=== PATIENT | female | born 1955 | race Caucasian/White ===

== ENCOUNTER 2023-09-11 07:55 | Emergency (ER) | payer MEDICARE, BC ==
[~2023-09-11] VITALS: Ht 177.8 cm; Wt 73.5 kg
[2023-09-11] MEDS ORDERED: NAPR-1009 PO (09:57)
[2023-09-11 10:22] VITALS: BP 130/78; TEMP 97.8; O2SAT 100
== END 2023-09-11 10:20 | disposition home or self-care (01) ==
LOC: ER 08:12
DX: S80.02XA Contusion of left knee, initial encounter (principal); S00.33XA Contusion of nose, initial encounter; E78.00 Pure hypercholesterolemia, unspecified; W01.0XXA Fall on same level from slipping, tripping and stumbling without subsequent striking against object, initial encounter; Y93.01 Activity, walking, marching and hiking; Y92.89 Other specified places as the place of occurrence of the external cause; Y99.8 Other external cause status
CPT/HCPCS: 70450-TC; 73564-TC